=== PATIENT | male | born 1980 | race Caucasian/White ===

== ENCOUNTER 2020-06-16 17:12 | Emergency (ER) | payer OTHER ==
[~2020-06-16] VITALS: Ht 190.5 cm; Wt 86.2 kg
[2020-06-16] MEDS ORDERED: ACETAMINOPHEN500 MG PO (21:28)
[2020-06-16] MEDS ORDERED: IBUP800 PO (21:28)
== END 2020-06-16 21:34 | disposition home or self-care (01) ==
LOC: ER 17:12
DX: S81.011A Laceration without foreign body, right knee, initial encounter (principal); Z23 Encounter for immunization; Z91.030 Bee allergy status; V28.4XXA Motorcycle driver injured in noncollision transport accident in traffic accident, initial encounter; Y92.410 Unspecified street and highway as the place of occurrence of the external cause
CPT/HCPCS: 12001; 73562-LT; 73610; 90471; 90714; 96372-59; 99284-25; J2270; J3010

== ENCOUNTER 2020-06-17 20:44 | Inpatient (IN) | payer OTHER ==
[~2020-06-17] VITALS: Ht 190.5 cm; Wt 94.7 kg
[~2020-06-17 20:44] MED LIST: ACETAMINOPHEN500 MG PO; IBUP800 PO
[2020-06-17 21:20] LABS: BASOPHILS ABSOLUTE AUTO 0.02 K/mm3 (0.00-0.23); BASOPHILS PERCENT AUTO 0 % (0-2); EOSINOPHILS PERCENT AUTO 0 % (0-6); Hemoglobin 14.6 g/dL (13.5-17.5); IMMATURE GRAN ABSOLUTE AUTO 0.06 K/mm3 (0.00-0.10); IMMATURE GRAN PERCENT AUTO 1 % (0-1); LYMPHOCYTES ABSOLUTE AUTO 0.71 K/mm3 (0.84-5.20); LYMPHOCYTES PERCENT AUTO 6 % (21-46); MONOCYTES ABSOLUTE AUTO 0.33 K/mm3 (0.16-1.47); MONOCYTES PERCENT AUTO 3 % (4-13); Mean Corpuscular HGB 30.2 pg (26.0-34.0); Mean Corpuscular HGB Conc 33.2 g/dL (31.5-36.5); Mean Corpuscular Volume 91 fL (80-100); Mean Platelet Volume 9.6 fL (9.1-12.4); NEUTROPHILS ABSOLUTE AUTO 11.35 K/mm3 (1.96-9.15); NEUTROPHILS PERCENT AUTO 91 % (41-73); NRBC ABSOLUTE 0.02 K/mm3 (0.00-0.02); NRBC Auto 0.2 /100 WBC (0.0-0.2); Platelet Count 241 K/mm3 (150-400); RDW Coefficient Variation 13.1 % (11.7-14.2); RDW Standard Deviation 43.8 fL (35.1-46.3); Red Blood Cell Count 4.84 M/mm3 (4.30-5.90); White Blood Cell Count 12.47 K/mm3 (4.00-11.30)
[2020-06-17 21:38] LABS: Alanine Aminotransfer (ALT/SGP 50 U/L (12-78); Albumin, Blood 3.5 g/dL (3.4-5.0); Albumin/Globulin Ratio 0.9 (0.8-1.8); Alk Phos 90 U/L (50-136); Anion Gap 8 mmol/L (6-16); Aspartate Aminotrans (AST/SGOT 22 U/L (12-37); Bilirubin, Total 1.4 mg/dL (0.1-1.0); Blood Urea Nitrogen 11 mg/dL (8-24); Bun/Creatinine Ratio 13.6 (12.0-20.0); CO2, Blood 24 mmol/L (21-32); Calcium, Blood 8.5 mg/dL (8.5-10.1); Chloride, Blood 101 mmol/L (98-108); Creatinine, Blood 0.81 mg/dL (0.60-1.20); Globulin, Blood 3.7 g/dL (2.2-4.0); Glomerular Filtration Rate >60 (60-); Glucose, Blood 156 mg/dL (70-99); Potassium, Blood 3.3 mmol/L (3.5-5.5); Sodium, Blood 133 mmol/L (136-145); Total Protein, Blood 7.2 g/dL (6.4-8.2)
[2020-06-17 22:51] LABS: Creatine Kinase MB 1.2 ng/mL (0.0-3.6); Creatine Kinase MB Index 0.3 (0.0-4.0)
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
[2020-06-18 05:31] LABS: Anion Gap 12 mmol/L (6-16); Blood Urea Nitrogen 12 mg/dL (8-24); Bun/Creatinine Ratio 13.2 (12.0-20.0); CO2, Blood 21 mmol/L (21-32); Calcium, Blood 8.4 mg/dL (8.5-10.1); Chloride, Blood 98 mmol/L (98-108); Creatinine, Blood 0.91 mg/dL (0.60-1.20); Glomerular Filtration Rate >60 (60-); Glucose, Blood 194 mg/dL (70-99); Potassium, Blood 3.3 mmol/L (3.5-5.5); Sodium, Blood 131 mmol/L (136-145)
--- NOTE | 2020-06-18 05:31 | NUR ---
SHIFT SUMMARY CONTINUES TO VOICE SEVERE PAIN OF LEFT HIP AND LEG. MD NOTIFIED AND DILAUDID IV CHANGED TO Q 1 HR PRN AND VICODIN CHANGED TO Q 4 HR PRN FOR PAIN. WILL ASK AM NURSE TO FOLLOW UP WITH AM MD RE CONSTANT PAIN. ALERT AND ORIENTED. CALL LIGHT IN REACH.
--- NOTE | 2020-06-18 06:39 | NUR ---
HR INCREASING (138), BP 158/97, RESP 14, O2 SATS 97%. PAIN CONTINUES. MD NOTIFIED, ORDERS FOR LR A 150 ML/HR OBTAINED.
--- NOTE | 2020-06-18 07:26 | NUR ---
AM ASSESSMENT DURING BEDSIDE REPORT PT STATE INCREASING LLE PAIN & SWELLING, LEG IS TIGHT, EDEMATOUS, COOL, CAP REFILL>3SECS, NOC RN STATE APPEARS WORSENING. PRN DILAUDID 1MG + NORCO GIVEN. DR CALIX NOTIFIED, IN TO ASSESS. LR STARTED @ 150 ML/HR.
[2020-06-18 08:25] LABS: Creatine Kinase MB 9.5 ng/mL (0.0-3.6)
[2020-06-18 08:27] LABS: Creatine Kinase MB Index 0.3 (0.0-4.0)
--- NOTE | 2020-06-18 10:50 | NUR ---
PAIN CONTINUED T/O MORNING. IV DILAUDID 1MG APPROX Q1 HR. HYDRAULIC BLOCKER LOCATE LLE PULSE w DOPPLER. PILLOWS USED TO ELEVATE LEG, ICE PACKS PROVIDED. DR CALIX ABLE TO CONSULT ORTHO SURG DR SANTILLAN, IN TO ASSESS. INFORM PT OF NEED FOR SURG, POSSIBLE COMPARTMENT SYNDROME, PT AGREES TO SURG, CONSENTS SIGNED. HORSE RACER UP TO TAKE PT OUT FOR PROCEDURE. REPORT TO SOLE STAINER ERIC, PT WILL TRANSFER TO 229 AFTER SURGERY.
[2020-06-18 11:39] LABS: Influenza A, PCR Negative (NEGATIVE); Influenza B, PCR Negative (NEGATIVE); Resp Syncytial Virus, PCR Negative (NEGATIVE); SARS-Cov-2 (COVID-19) PCR, MMC Negative (NEGATIVE)
--- NOTE | 2020-06-18 12:05 | NUR ---
DOPPLER PULSE AND PAIN MANAGEMENT I WAS CONTACTED BY ABIOLA'S BEDSIDE NURSE TO HELP WITH CARE FOR THIS PATIENT. HE HAD ALREADY HAD COME TO THE BEDSIDE TO SEE THE PATIENT. I COULD NOT FEEL A DORSALIS PULSE IN THE LEFT FOOT SO RETRIEVED THE DOPPLER, FOUND AND MARKED THE DORSALIS PULSE WITH THE DOPPLER. I COULD HEAR THAT IT WAS TACHYCARDIC. I THEN MEDICATED HIM WITH DILAUDID IV FOR PAIN AT STATED LEVEL 9. HE APPEARED IN EXCRUTIATING PAIN. HE PROMPTLY FELL TO SLEEP. AN HOUR AND 20 MIN LATER I MEDICATED HIM WITH ANOTHER 1 MG IV DILAUDID AND ZOFRAN FOR MILD NAUSEA. JUST BEFORE THIS DOSE HE HAD TRIED WITH 2 ASSIST TO SIT ON THE BSC FOR A BM. HE WAS A LITTLE DIZZY AND CLAMMY AND HE HAD WATERY RED DRAINAGE DRAIN FROM HIS L KNEE WOUND. HE SAID HE THOUGHT HE HAD TO GO BUT SAID HE COULDN'T AFTERALL. WE HELPED HIM BACK TO BED LIFTING HIS LEFT LEG UP FOR HIM. HE REQUESTED HIS LEG ELEVATED, SO PUT IT ON 2 PILLOWS. L KNEE WAS DRESSED. BY THIS TIME DR. CALIX WAS BACK AGAIN AND CALLED . HE ASSESSED THE PATIENT SOON AFTER AND PATIENT LEFT FOR EMERGENCY SURGERY.
--- NOTE | 2020-06-18 13:06 | NUR ---
PT ARRIVED FROM OR TO ICU 7 AT 1200. PT WAS NOT TAKING DEEP BREATHS AND WAS TOO SEDATE. NARCAN GIVEN AND PT WAS ABLE TO START BREATHING ADEQUATELY. PT HAS A WOUND VAC TO L LEG AT KNEE AND OUTER THIGH. DEEP PURPLE DISCOLORATION INTO GROIN, SCROTUM, AND MID ABD AROUND FLANK. MARKED AREA WITH SKIN MARKER AND TOOK PHOTOS. L FOOT IS COLD AND DUSKY. ONLY ABLE TO FIND POSTERIOR TIBIAL PULSE WITH DOPPLER ON L FOOT. OR CREW STATES THE FOOT LOOKS BETTER THAN PRIOR TO SURGERY. R FOOT IS ALSO COLD AND ONLY DOPPLER PULSES. LEVOPHED WAS TURNED OFF WHEN PT ARRIVED TO ICU DUE TO BP STABLIZING. IVF STARTED AND MULTIPLE ABX TO BE GIVEN. KCL RIDER STARTED WELL. GAVE PT A DOSE OF FENTANYL FOR SEVERE PAIN. PT IS MORE COMFORTABLE NOW. MEZA CATH PLACED FOR STRICT I&O. IS AT BEDSIDE AND HAS BEEN UPDATED. PLAN IS TO TRANSFER TO HIGHER LEVEL OF CARE WHEN A BED IS AVAILABLE.
[2020-06-18 13:21] LABS: Hematocrit 42.3 % (37.0-53.0)
--- NOTE | 2020-06-18 14:30 | NUR ---
DR. BUTLER HAD BEEN IN THE ROOM WHEN PT ARRIVED FROM OR AND HAD BEEN UPDATED BY OR CREW. PT BECAME DIAPHORETIC AND CLAMMY. SEE FLOWSHEET FOR VITALS. PT C/O ABD PAIN. L LEG IS SWOLLEN AND TAUT NOW, WHERE WHEN HE ARRIVED FROM OR THERE WAS SOME GIVE TO HIS QUAD MUSCLE. PURPLE DISCOLORATION IS NOT GROWING OUTSIDE OF MARKINGS BUT IT IS DEEPER IN COLOR AROUND SCROTUM. STILL ABLE TO GET DOPPLER POSTERIOR TIBIAL PULSE AND NOT DORSALIS. CAP REFILL IS RIGHT AT 3 SEC. WOUND VAC IS PUTTING OUT LARGE AMT OF RED LIQUID. LET DR. WOODSKNOW ABOUT THESE FINDINGS AND HE CAME TO BEDSIDE TO EVAL AGAIN. HE PLACED CENTRAL LINE TO [facility] AND IT WAS CONFIRMED BY XRAY. REPORT WAS GIVEN TO CRISTINO MITCHELL AT [facility] PT WILL BE FLOWN VIA HELICOPTER TO HIGHER LEVEL OF CARE. PT IS AROUSABLE AND ORIENTED BUT DROWSY. REMAINS AT BEDSIDE.
--- NOTE | 2020-06-18 14:50 | NUR ---
WOUND VAC: Spoke with Dr. Gomez r/t continuation of wound-vac during transport to [facility]. Dr. 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 Pump ID # added to transfer summary.
--- NOTE | 2020-06-18 15:00 | NUR ---
TRANSFER TO HIGHER LEVEL OF CARE WAS INITIATED SOON PT CAME OUT OF OR. , DR. SANTILLAN, AND DR. BUTLER ALL AT BEDSIDE TO CORRELATE CARE AND IMMEDIATE TRANSFER. REACH IS TAKING PT VIA HELICOPTER. REPORT GIVEN TO REACH CREW AND PT TRANSFERED. LEVOPHED SENT WITH PT BUT HAD NOT BEEN STARTED. NS AND ANTIBIOTICS TAKEN WITH PT. WOUND VAC TAKEN WITH PT WELL. PT IS AROUSABLE AND ORIENTED BUT DROWSY. LEG SWELLING AND APPEARANCE IS THE SAME LAST NOTE.
[2020-06-18 15:32] LABS: Source, Urine Catheter
[2020-06-18 15:34] LABS: Blood, Urine 5+ (Neg); Glucose Qualitative, Urine 2+ (Neg); Ketones, Urine Neg (Neg); Leukocyte Esterase, Urine Neg (Neg); Nitrite, Urine Neg (Neg); Protein, Urine 3+ (Neg); Specific Gravity, Urine 1.025 (1.003-1.022); Urobilinogen, Urine 2+ (Normal)
[2020-06-18 15:40] LABS: Appearance, Urine Clear (Clear); Bilirubin, Urine 1+ (Neg); Color, Urine Yellow (P-Yellow)
[2020-06-18 15:42] LABS: Amorphous Light (0-Heavy); Bacteria Few /hpf; Hyaline Casts 0-2 /lpf (0-2); Mucus Light (0-Heavy); Squamous Epithelial Cells Rare /hpf (Few); White Blood Cells, Urine Rare /hpf (0-5)
--- NOTE | 2020-06-19 16:38 | NUR ---
06/19/20 1638 Precious Mcnally VERIFICATIONS: EDIT CHART.
== END 2020-06-18 15:04 | disposition short-term general hospital (02) | DRG 901 ==
LOC: ER 20:44 → MEDS 20:45 → ICUE 06-18 11:49
PROVIDERS: Anesthesiology; Emergency Medicine; Internal Medicine; Orthopaedic Surgery; Physician Assistant; ADMIT Internal Medicine
PROC: 0KNR0ZZ Release Left Upper Leg Muscle, Open Approach (ICD-10-PCS; 2020-06-18)
PROC: 02HV33Z Insertion of Infusion Device into Superior Vena Cava, Percutaneous Approach (ICD-10-PCS; 2020-06-18)
PROC: 0JBP0ZZ Excision of Left Lower Leg Subcutaneous Tissue and Fascia, Open Approach (ICD-10-PCS; 2020-06-18)
PROC: 0KNR0ZZ Release Left Upper Leg Muscle, Open Approach (ICD-10-PCS; principal; 2020-06-18 10:00)
DX: T79.A22A Traumatic compartment syndrome of left lower extremity, initial encounter (principal); M72.6 Necrotizing fasciitis; E87.6 Hypokalemia; R11.2 Nausea with vomiting, unspecified; S81.012A Laceration without foreign body, left knee, initial encounter; V29.9XXA Motorcycle rider (driver) (passenger) injured in unspecified traffic accident, initial encounter
CPT/HCPCS: 0241U; 36415; 71045; 73502; 73701; 80048; 80053; 81001; 82550; 82553; 83605; 85014; 85018; 85025; 86850; 86900; 86901; 87040; 87070; 87075; 87076; 87205; 93971; 96361; 96372; 96374-59; 96375-59; 96376; 96376-59; 99285-25; A9270; G0378; J0690; J1100; J1170; J1200; J1650; J2250; J2310; J2370; J2405; J2543; J2704; J3010; J3370; J3480; J7030; J7050; J7120; Q9967